=== PATIENT | male | born 1955 | race Asian ===

== ENCOUNTER 2016-12-26 12:15 | Emergency (ER) | payer BC ==
[2016-12-26] MEDS ORDERED: NORMAL SALINE 1000 ML 1,000 ML IV PRN (13:19)
[2016-12-26] MEDS ORDERED: ONDANSETRON HCL INJ/PF 4 MG/2 ML SDV IV ONE (13:20)
[2016-12-26] MEDS ORDERED: MORPHINE SULFATE 10 MG/ML INJ IV ONE (13:20)
--- NOTE | 2016-12-26 13:21 | ER Document Report ---
ED Medical Screen (RME) - General Mode of Arrival: Ambulatory Information source: Patient TRAVEL OUTSIDE OF THE [place] IN LAST 30 DAYS: No <HARLAN CARUSO - Last Filed: 12/26/16 13:20> <NATHAN WHITFIELD - Last Filed: 12/26/16 15:13> - General Chief Complaint: Flank Pain Stated Complaint: ABDOMINAL PAIN Time Seen by Provider: 12/26/16 13:19 Notes: 61-year-old Albanian speaking man who presents to the emergency room with left flank pain for the past 2 days. Patient denies fever. He does report nausea without vomiting. His only medicines as Pepcid for "bloating". He denies any allergies to medicines. He denies any surgeries. He states he was told that he has "grains in his kidneys in the past". History is Via [email or web address]. ( HARLAN CARUSO) - Related Data Allergies/Adverse Reactions: No Known Allergies Allergy (Verified 12/26/16 12:17) Past Medical History Renal/ Medical History: Denies: Hx Peritoneal Dialysis <JULIANNEROWENAHARLAN - Last Filed: 12/26/16 13:20> Course - Laboratory Result Diagrams: 12/26/16 13:40 12/26/16 13:40 <NATHAN WHITFIELD - Last Filed: 12/26/16 15:13> - Vital Signs Vital signs: Temp Pulse Resp BP Pulse Ox 97.9 F 70 20 170/87 H 98 12/26/16 12:17 12/26/16 12:17 12/26/16 12:17 12/26/16 12:17 12/26/16 12:17 - Laboratory Laboratory results interpreted by me: 12/26/16 12/26/16 12/26/16 13:40 13:40 14:08 WBC 15.3 H Absolute Neutrophils 10.0 H Absolute Monocytes 1.5 H Total Protein 8.4 H Urine Ketones 20 H Urine Blood LARGE H Doctor's Discharge <SHADYHARLAN - Last Filed: 12/26/16 13:20> <NATHAN WHITFIELD - Last Filed: 12/26/16 15:13> - Discharge Clinical Impression: Acute left flank pain Condition: Good Disposition: HOME, SELF-CARE Additional Instructions: S? d?ch Google d?ch du?c ch?n don b?ng s?i th?n bn tri. Hn d b? m?c k?t tr n du?ng ra kh?i co th? c?a b?n. i?u ny c th? gy ra desean. Billie hy dng reji?c chng ti d k don. Gisel ta cung c?n ph?i liss di v?i m?t chuyn radha betty v ng m?t tu?n. Chng ti d cung c?p cho b?n thng tin ny. N?u con desean c?a b?n x? u di ho?c cc lo?i reji?c khng ho?t d?ng ho?c gisel ta b? s?t tr? l?i v?i ER patricia sanchez. Prescriptions: Ibuprofen [Motrin 600 Mg Tablet] 600 mg PO TID #15 tablet Ondansetron [Zofran Odt 4 mg Tablet] 1 - 2 tab PO Q4H PRN #15 tab.rapdis PRN Reason: For Nausea/Vomiting Oxycodone HCl [Oxycontin Ir 5 Mg Tablet] 1 - 2 mg PO Q4H PRN #15 tablet PRN Reason: For Pain Referrals: MARLENI TAYLOR MD [ACTIVE STAFF] - Follow up as needed ALYSSA DUKES MD [[facility]] - Follow up as needed
--- NOTE | 2016-12-26 13:59 | ER Document Report ---
ED General - General Chief Complaint: Flank Pain Stated Complaint: ABDOMINAL PAIN Time Seen by Provider: 12/26/16 13:19 Mode of Arrival: Ambulatory Notes: 61-year-old male Panamanian speaking gentleman presents with left-sided back and flank pain, sharp, for about 30 hours gradual onset constant but also waxes and wanes not associated with nausea vomiting or fever. Also complains of chronic diarrhea whenever he eats which is not been diagnosed. He states that he has a specialist back in [place] and might of had some "green or debris" coming down from his kidneys in the past. Denies scrotal pain swelling penile discharge or hernia. TRAVEL OUTSIDE OF THE [place] IN LAST 30 DAYS: No - Related Data Allergies/Adverse Reactions: No Known Allergies Allergy (Verified 12/26/16 12:17) Past Medical History - General Information source: Patient - Social History Smoking Status: Smoker,Current Status Unk Chew tobacco use (# tins/day): No Frequency of alcohol use: Rare Drug Abuse: None Family History: None Patient has suicidal ideation: No Patient has homicidal ideation: No Renal/ Medical History: Reports: Hx Kidney Stones. Denies: Hx Peritoneal Dialysis Surgical Hx: Negative Review of Systems - Review of Systems Notes: REVIEW OF SYSTEMS GEN: Denies fever, chills, weight loss ENT: Denies sore throat, nasal discharge, ear pain EYES: Denies blurry vision, eye pain, discharge CV: Denies chest pain, palpitations, edema RESP: Denies cough, shortness of breath, wheezing GI: Pain, diarrhea MSK: Denies joint pain/swelling, edema, SKIN: Denies rash, skin lesions LYMPH: Denies swollen glands/lymph nodes NEURO: Denies headache, focal weakness or numbness, dizziness PSYCH: Denies depression, suicidal or homicidal ideation PHYSICAL EXAMINATION General: No acute distress, well-nourished Head: Atraumatic, normocephalic ENT: Mouth normal, oropharynx moist, no exudates or tonsillar enlargement Eyes: Conjunctiva normal, pupils equal, lids normal Neck: No JVD, supple, no guarding CVS: Normal rate, regular rhythm, no murmurs Resp: No resp distress, equal and normal breath sounds bilaterally GI: Nondistended, soft, no tenderness to palpation, no rebound or guarding Ext: No deformities, no edema, normal range of motion in upper and lower ext Back: No CVA or midline TTP Skin: No rash, warm Lymphatic: No lymphadeopathy noted Neuro: Awake, alert. Face symmetric. GCS 15. Physical Exam - Vital signs Vitals: Temp Pulse Resp BP Pulse Ox 97.9 F 70 20 170/87 H 98 12/26/16 12:17 12/26/16 12:17 12/26/16 12:17 12/26/16 12:17 12/26/16 12:17 Course - Re-evaluation Re-evalutation: 12/26/16 13:58 51-year-old male presents with sharp left flank pain and a history of kidney disease. Possible stones. He has no tenderness, normal vital signs and is not vomiting. His abdomen is nontender. Differential includes kidney stone, kidney dysfunction or kidney infection although I doubt he has a hernia testicular torsion or other emergent intra-abdominal or retroperitoneal disorder. He was given morphine and labs were ordered by that provider at triage and I will get a noncontrast CT. His vitals are stable and he has a history of kidney disease, so I do not think his presentation reflects aortic issue despite his smoking history. 12/26/16 14:56 Is improved. Urinalysis shows blood. CT shows obstructing left UVJ calculus. Will be referred to urology, will be treated with Motrin Zofran and narcotic pain reliever. Patient educated via marketing community liaison phone. Discharged in stable condition. 12/26/16 15:09 - Vital Signs Vital signs: Temp Pulse Resp BP Pulse Ox 97.9 F 70 20 170/87 H 98 12/26/16 12:17 12/26/16 12:17 12/26/16 12:17 12/26/16 12:17 12/26/16 12:17 - Laboratory Result Diagrams: 12/26/16 13:40 12/26/16 13:40 Laboratory results interpreted by me: 12/26/16 12/26/16 12/26/16 13:40 13:40 14:08 WBC 15.3 H Absolute Neutrophils 10.0 H Absolute Monocytes 1.5 H Total Protein 8.4 H Urine Ketones 20 H Urine Blood LARGE H - Diagnostic Test Radiology reviewed: Image reviewed, Reports reviewed Discharge - Discharge Clinical Impression: Acute left flank pain Condition: Good Disposition: HOME, SELF-CARE Additional Instructions: S? d?ch Google d?ch du?c ch?n don b?ng s?i th?n bn tri. Hn d b? m?c k?t tr n du?ng ra kh?i co th? c?a b?n. i?u ny c th? gy ra desean. Billie hy dng reji?c chng ti d k don. Gisel ta cung c?n ph?i liss di v?i m?t chuyn radha betty v ng m?t tu?n. Chng ti d cung c?p cho b?n thng tin ny. N?u con desean c?a b?n x? u di ho?c cc lo?i reji?c khng ho?t d?ng ho?c gisel ta b? s?t tr? l?i v?i ER patriciatenisha bradford. Prescriptions: Ibuprofen [Motrin 600 Mg Tablet] 600 mg PO TID #15 tablet Ondansetron [Zofran Odt 4 mg Tablet] 1 - 2 tab PO Q4H PRN #15 tab.rapdis PRN Reason: For Nausea/Vomiting Oxycodone HCl [Oxycontin Ir 5 Mg Tablet] 1 - 2 mg PO Q4H PRN #15 tablet PRN Reason: For Pain Referrals: ALYSSA DUKES MD [[facility]] - Follow up as needed
[2016-12-26 14:01] LABS: ABSOLUTE BASOPHILS # (AUTO) 0.1 10^3/uL (0.0-0.2); ABSOLUTE EOSINOPHILS # (AUTO) 0.3 10^3/uL (0.0-0.6); ABSOLUTE LYMPHOCYTES (AUTO) 3.3 10^3/uL (0.5-4.7); ABSOLUTE MONOCYTES (AUTO) 1.5 10^3/uL (0.1-1.4); BASOPHILS % (AUTO) 0.5 % (0-2); EOSINOPHILS % (AUTO) 2.1 % (0-6); HEMATOCRIT 44.8 % (37.9-51.0); HEMOGLOBIN 15.2 g/dL (13.5-17.0); HGB HCT DIFFERENCE 0.8; LYMPHOCYTES % (AUTO) 21.8 % (13-45); MEAN CORPUSCULAR HEMOGLOBIN 32.4 pg (27.0-33.4); MEAN CORPUSCULAR VOLUME 96 fl (80-97); MONOCYTES % (AUTO) 9.9 % (3-13); RED BLOOD COUNT 4.69 10^6/uL (4.35-5.55); RED CELL DISTRIBUTION WIDTH 13.2 % (11.5-14.0); SEGMENTED NEUTROPHILS % (AUTO) 65.7 % (42-78); WHITE BLOOD COUNT 15.3 10^3/uL (4.0-10.5)
[2016-12-26 14:17] LABS: ALANINE AMINOTRANSFERASE 29 U/L (21-72); ALBUMIN 4.8 g/dL (3.5-5.0); ALKALINE PHOSPHATASE 72 U/L (38-126); ANION GAP 15 (5-19); ASPARTATE AMINO TRANSFERASE 24 U/L (17-59); BILIRUBIN,DIRECT 0.3 mg/dL (0.0-0.4); BILIRUBIN,TOTAL 0.8 mg/dL (0.2-1.3); BLOOD UREA NITROGEN 17 mg/dL (7-20); CALCIUM 9.3 mg/dL (8.4-10.2); CARBON DIOXIDE 27 mmol/L (22-30); CHLORIDE 102 mmol/L (98-107); CREATININE RESULT 1.02 mg/dL (0.52-1.25); GLUCOSE 88 mg/dL (75-110); SODIUM 143.5 mmol/L (137-145); TOTAL PROTEIN 8.4 g/dL (6.3-8.2)
[2016-12-26 14:29] LABS: APPEARANCE,URINE CLEAR; BILIRUBIN,URINE NEGATIVE (NEGATIVE); GLUCOSE, URINE NEGATIVE (NEGATIVE); KETONES,URINE 20 mg/dL (NEGATIVE); LEUKOCYTE ESTERASE,URINE NEGATIVE (NEGATIVE); NITRITE,URINE NEGATIVE (NEGATIVE); PROTEIN,URINE NEGATIVE (NEGATIVE); URINE SPECIFIC GRAVITY 1.011; UROBILINOGEN,URINE NEGATIVE mg/dL (<2.0)
--- NOTE | 2016-12-26 14:50 | RADIOLOGY REPORT (SQ) ---
EXAM DESCRIPTION: CT LTD RENAL STONE PROTOCOL ON COMPLETED DATE/TIME: 12/26/2016 2:26 pm REASON FOR STUDY: left flank pain COMPARISON: None. TECHNIQUE: CT scan of the abdomen and pelvis performed without intravenous or oral contrast. Images reviewed with lung, soft tissue, and bone windows. Reconstructed coronal and sagittal MPR images revi ewed. All images stored on PACS. All CT scanners at this facility use dose modulation, iterative reconstruction, and/or weight based d osing when appropriate to reduce radiation dose to as low as reasonably achievable (ALARA). [facility]: Dose Right [facility]: CareDose [facility]: Dose Right [facility]: Teradose 4D [facility]: Schedulize RADIATION DOSE: 4.80mGy. LIMITATIONS: None. FINDINGS: LOWER CHEST: No significant findings. No nodules or infiltrates. NON-CONTRASTED LIVER, SPLEEN, ADRENALS: Evaluation limited by lack of IV contrast. No identified sign ificant masses. PANCREAS: No masses. No peripancreatic inflammatory changes. GALLBLADDER: No identified stones by CT criteria. No inflammatory changes to suggest cholecystitis. RIGHT KIDNEY AND URETER: No suspicious masses. Assessment limited by lack of IV contrast. No signif icant calcifications. No hydronephrosis or hydroureter. LEFT KIDNEY AND URETER: No suspicious masses. Assessment limited by lack of IV contrast. Couple tin y nonobstructing left renal calculi are identified. An obstructing 4.3 mm in diameter calculus is id entified at the level of the uterovesical junction within the bladder. There is hydronephrosis of t he left kidney and dilatation of the left ureter proximal to this level. AORTA AND RETROPERITONEUM: No aneurysm. No retroperitoneal masses or adenopathy. BOWEL AND PERITONEAL CAVITY: No obvious masses or inflammatory changes. No free fluid. APPENDIX: Normal. PELVIS, BLADDER, AND ABDOMINAL WALL:No abnormal masses. No free fluid. Bladder normal. BONES: No significant findings. OTHER: No other significant finding. IMPRESSION: Obstructing calculus at the level of the uterovesical junction on the left. Tiny nonobs tructing left renal calculi are identified. Other findings as noted above TECHNICAL DOCUMENTATION: JOB ID: [id number] Quality ID # [id number]: Final reports with documentation of one or more dose reduction techniques (e.g., Au tomated exposure control, adjustment of the mA and/or kV according to patient size, use of iterative reconstruction technique) 2010 [employer]- All Rights Reserved
[2016-12-26 15:40] VITALS: BP 164/81
== END 2016-12-26 15:37 | disposition home or self-care (01) ==
LOC: ER 12:15
DX: N13.2 Hydronephrosis with renal and ureteral calculous obstruction (principal); R10.9 Unspecified abdominal pain; M54.9 Dorsalgia, unspecified; R19.7 Diarrhea, unspecified
CPT/HCPCS: 99284; 96374; 96375; 36415; 85025; 80053; 81001; 76380; J2270; J2405; J7030